=== PATIENT | female | born 1960 | race Caucasian/White ===

== ENCOUNTER 2017-03-28 08:22 | Day surgery (SDC) | payer OTHER ==
[~2017-03-28] VITALS: Ht 142.2 cm; Wt 80.0 kg
[2017-03-28] MEDS ORDERED: ACTOS (10:25)
[2017-03-28] MEDS ORDERED: METHADONE (10:25)
[2017-03-28] MEDS ORDERED: GLIMEPIRIDE (10:25)
[2017-03-28 10:27] VITALS: Ht 142.2 cm; Wt 80.0 kg
[2017-03-28] MEDS ORDERED: PROPOFOL 20 ML ONE (10:33)
[2017-03-28 10:53] VITALS: BP 158/67; PULSE 65; RESP 23
--- NOTE | 2017-03-28 11:26 | GILP ---
DATE OF PROCEDURE: 03/28/2017 NAME OF PROCEDURE: Colonoscopy. SURGEON: Jhony Canchola MD PREOPERATIVE DIAGNOSES: Rectal bleeding. POSTOPERATIVE DIAGNOSES: 1. Colonoscopy all the way to the cecum. 2. Poor prep, making the exam very suboptimal. 3. Internal hemorrhoids. INDICATION FOR THE PROCEDURE: Ms. Cristhian Zhu is a 56-year-old female patient who had rectal bleeding . Patient was scheduled for colonoscopy for further evaluation. The procedure and possible complications were well explained to the patient. She understood and con sented to the procedure. DESCRIPTION OF PROCEDURE: Under the influence of anesthesia, the colonoscope was carefully introduc ed in the rectum and under direct vision, it was advanced all the way to the cecum. FINDINGS: The patient had poor prep with solid stool in the cecum and right colon, making the exam very suboptimal. The patient was noted to have internal hemorrhoids. She tolerated the procedure very well and there was no complication from the procedure. At the end of the procedure, she was awake with stable vital signs and she was discharged home to the care of h er family. IMPRESSION: 1. Colonoscopy all the way to the cecum. 2. Poor prep making the exam very suboptimal. 3. Internal hemorrhoids. PLAN: 1. Anusol-HC 2.5% cream b.i.d. 2. Patient will need repeat colonoscopy with better preparation. Dictated By: JHONY DAVIS/HERMINIA Conf#: [id number] DID#: [id number] CC: JHONY CANCHOLA MD;*EndCC*
[2017-03-28 11:35] VITALS: BP 151/88; RESP 20
== END 2017-03-28 11:45 | disposition home or self-care (01) ==
LOC: GIL 08:22
PROVIDERS: ATTEND Internal Medicine Gastroenterology
DX: K64.8 Other hemorrhoids (principal); I10 Essential (primary) hypertension; E66.9 Obesity, unspecified; Z68.39 Body mass index [BMI] 39.0-39.9, adult; E11.9 Type 2 diabetes mellitus without complications
CPT/HCPCS: 45378; Z7610